=== PATIENT | male | born 1985 | race Asian ===

== ENCOUNTER 2019-11-07 02:52 | Emergency (ER) | payer OTHER ==
[~2019-11-07] VITALS: Ht 175.3 cm; Wt 81.6 kg
[2019-11-07 02:52] VITALS: BP_SYST 171
--- NOTE | 2019-11-07 02:52 | NUR ---
Patient in custody to [facility] [address] for blood Draw. Officer Katlyn escorting pt.
--- NOTE | 2019-11-07 02:55 | NUR ---
Pt brought in By [facility] Officer Katlyn. Pt ambulatory with steady gait. Pt denies any medical complaint. Pt brought to [facility] for Blood Alcohol Draw. Pt has given verbal consent for blood draw to rina and officer Tung.
--- NOTE | 2019-11-07 03:29 | NUR ---
Written and verbal consent obtained from patient for blood alcohol, name and verified by patient. Disinfected patient's skin with Iodine that did not contain alcohol or other volatile organic compound. Collected the blood from the subject named by venipuncture, in the presence of Officer Katlyn. Used a sterile, dry hypodermic needle and dry vacuum blood collection. Two dry vacuum blood collection was supplied by the officer named above. Withdrew a specimen of blood from R Forearm of the subject named above. Inverted both blood tubes several times to ensure that the preservative and anticoagulant were thoroughly mixed in the blood specimen. I initialed both blood tube labels for identification. The labeled blood tubes were handed directly to the Officer named above. The blood tubes stopper remained in place while I had possession of the blood tubes. The Officer placed tubes into envelope and sealed it in my presence. Envelope initialed by myself and Officer named above. Patient tolerated well, bandage applied, and bleeding controlled.
[2019-11-07 03:50] VITALS: BP_SYST 165
--- NOTE | 2019-11-07 03:50 | NUR ---
Patient given verbal discharge instructions and verbalizes understanding. Officer given completed and signed consent for blood test
== END 2019-11-07 03:29 ==
LOC: SED 02:52
DX: Z02.83 Encounter for blood-alcohol and blood-drug test (principal)